=== PATIENT | female | born 1975 ===

== ENCOUNTER → 2021-09-20 | Outpatient (CLI) | payer OTHER | LOC: MC.RAD 09:57 | DX: Z12.31 Encounter for screening mammogram for malignant neoplasm of breast (principal) ==

== ENCOUNTER → 2023-02-15 | Outpatient (CLI) | payer OTHER | LOC: MC.RAD 14:27 | DX: Z12.31 Encounter for screening mammogram for malignant neoplasm of breast (principal) ==